=== PATIENT | female | born 1950 | race Caucasian/White ===

== ENCOUNTER 2019-07-28 11:29 | Outpatient (CLI) | payer MEDICARE ==
[2019-07-28] MEDS ORDERED: OMNIPAQUE 350 MG/ML, 100ML BOTTLE ONE (13:00)
== END 2019-07-28 23:59 | disposition home or self-care (01) ==
LOC: RAD 11:29
PROVIDERS: ATTEND Nurse Practitioner Primary Care
DX: C76.0 Malignant neoplasm of head, face and neck (principal)
CPT/HCPCS: 36415; 70470; 70491; 82565; Q9967